=== PATIENT | female | born 2005 ===

== ENCOUNTER 2024-04-07 11:25 | Observation (INO) | payer BC, SELFPAY ==
[2024-04-07 12:09] VITALS: BMI 22.8
[2024-04-07] MEDS ORDERED: Ketorolac Tromethamine 30 MG (1 mL) VIAL IVP PRN (12:39)
[2024-04-07 13:42] LABS: #Basophils 0.04 10x3/uL (0.0-0.2); %Basophils 0.3 % (0.0-1.0); %Eosinophils 1.4 % (0.0-10.0); %Monocytes 8.9 % (0.0-4.0); Hematocrit 32.3 % (36.0-47.0); Hemoglobin 10.9 g/dL (12.0-16.0); Mean Corpuscular HGB CONC 33.7 g/dL (32.0-36.0); Mean Corpuscular Hemoglobin 29.9 pg (25.0-35.0); Mean Corpuscular Volume 88.7 fL (78.0-98.0); Mean Platelet Volume 9.2 fL (7.4-10.4); Platelet Count 444 10x3/uL (130-400); Platelet Count 450 10x3/uL (130-400); RBC Distribution Width 13.7 % (11.5-14.5); Red Blood Cell (RBC) Count 3.64 mill/uL (4.00-5.20)
[2024-04-07 14:02] LABS: Anion Gap 11 mmol/L (10-20); BUN (Urea Nitrogen) 5 mg/dL (7.0-18.7); Calc. Creatinine Clearance 166 mL/min (70-130); Calcium 8.5 mg/dL (7.8-10.44); Carbon Dioxide 23 mmol/L (22-29); Chloride 105 mmol/L (98-107); Estimated GFR 133; Glucose 86 mg/dL (70-105); Potassium 3.8 mmol/L (3.5-5.1); Sodium 135 mmol/L (136-145)
[2024-04-07 14:06] LABS: Fibrinogen 530 mg/dL (253-463)
[2024-04-07 14:09] LABS: PTT 33.7 sec (22.9-36.1)
[2024-04-07 14:10] LABS: INR-International Normal Ratio 1.1; Prothrombin Time 13.8 sec (12.0-14.7)
[2024-04-07 14:14] LABS: D-Dimer Test 11.68 mcg/mL (0.27-0.43)
[2024-04-07] MEDS ORDERED: busPIRone HCl 5 MG TAB PO PRN (14:46)
[2024-04-07] MEDS: Sodium Chloride 0.9% 1,000 ML IV SCH (15:59)
[2024-04-07] MEDS: Pantoprazole DR 40 MG TAB PO SCH ×2 (15:59→19:55)
[2024-04-07] MEDS: Ondansetron PF 4 MG/2 ML Vial IVP PRN (16:08)
[2024-04-07] MEDS: Morphine 2 MG/ML VIAL SLOW IVP PRN (16:08)
[2024-04-07] MEDS: Polyethylene Glycol 3350 17 GM Packet PO SCH (19:04)
[2024-04-07] MEDS: Lidocaine 2% Viscous Solution 20 ML, Aluminum & Magnesium Hydroxide 30 ML, Donnatal Eli... SSW SCH (19:57)
[2024-04-07] MEDS: Ketorolac Tromethamine 30 MG (1 mL) VIAL IVP PRN (23:05)
[2024-04-07] MEDS: Acetaminophen 325 MG TAB PO PRN (23:07)
[2024-04-08] MEDS: traMADol HCl 50 MG TAB PO SCH (01:33)
[2024-04-08 04:15] VITALS: TEMP 97.8
[2024-04-08 08:23] VITALS: BP 124/58
[2024-04-08] MEDS ORDERED: Pantoprazole DR 40 MG TAB PO SCH (09:00)
[2024-04-08] MEDS: Polyethylene Glycol 3350 17 GM Packet PO SCH (09:21)
== END 2024-04-08 10:40 | disposition home or self-care (01) ==
LOC: 2SW 11:25
PROVIDERS: ADMIT Internal Medicine; ATTEND Internal Medicine
DX: R10.31 Right lower quadrant pain (principal); E87.1 Hypo-osmolality and hyponatremia; D69.6 Thrombocytopenia, unspecified; F41.9 Anxiety disorder, unspecified; F17.290 Nicotine dependence, other tobacco product, uncomplicated; R79.89 Other specified abnormal findings of blood chemistry; R11.2 Nausea with vomiting, unspecified; R19.7 Diarrhea, unspecified; Z79.899 Other long term (current) drug therapy
CPT/HCPCS: 36416; 76856; 80048; 83690; 85025; 85049; 85300; 85362; 85384; 85610; 85730; 96374; 96375; G0378; J1885; J2272; J2405; J7050